=== PATIENT | female | born 1970 | race Caucasian/White ===

== ENCOUNTER 2019-09-17 15:00 | Emergency (ER) | payer MEDICAID ==
[~2019-09-17] VITALS: Ht 157.5 cm; Wt 75.0 kg
[2019-09-17 15:02] VITALS: BP 119/70
[2019-09-17] MEDS ORDERED: FLUORESCEIN OPHTHALMIC 1 MG STRIP ONE (15:17)
[2019-09-17] MEDS ORDERED: PROPARACAINE OPHTH 0.5%, 15ML ONE (15:17)
--- NOTE | 2019-09-17 15:25 | NUR ---
PT AMBULATORY TO ROOM 20 W/ C/O L UNDEREYE REDNESS AFTER PT SCRATCHED SKIN UNDER EYE 3 DAYS AGO. PT ALSO STATES SHE HAS HAD TSE X 3 DAYS. PT ALSO STATES BLURRY VISION SENSATION. PT RESTING ON [employer] BREN.
== END 2019-09-17 15:58 | disposition home or self-care (01) ==
LOC: ED 15:52
DX: H01.005 Unspecified blepharitis left lower eyelid (principal)
CPT/HCPCS: 99283